=== PATIENT | male | born 1970 | race African-American/Black ===

== ENCOUNTER 2017-02-08 21:13 | Emergency (ER) | payer SELFPAY ==
[~2017-02-08] VITALS: Ht 177.8 cm; Wt 132.0 kg
[~2017-02-08 21:13] MED LIST: ALBU17I INH; PRED20 PO; ZITH500T PO
[2017-02-08 21:16] VITALS: BP 156/101; PULSE 101; RESP 16; TEMP 98; O2SAT 99
[2017-02-09 00:27] VITALS: BP 134/84; PULSE 76; RESP 18; O2SAT 97
--- NOTE | 2017-02-09 01:25 | PD ---
HPI Chief Complaint: Headache Time Seen by Provider: 00:23 Travel History International Travel<30 days: No Contact w/Intl Traveler<30days: No Traveled to known affect area: No History of Present Illness HPI The patient is a 46 year old male who presents to the [facility] emergency department with a history of intermittent headaches that he reports have become more frequent over the last month. The patient reports that he has had more home stressors, however he is also concerned that it may be related to untreated sleep apnea. He reports that he ago he was diagnosed with sleep apnea , however his insurance would not K for at the mask, therefore he has not gotten one. He reports that he is also had difficulty sleeping related to his arriving work schedule and reflux symptoms. He reports that over the last month his reflux has actually improved since starting on omeprazole over-the- counter and ingesting aloe. The patient reports that the headache moves about his head. He reports that in the day while standing it seems to center behind the right eye. He reports that during the evening when he is lying down it will center on whatever part of his head is on the bed. He reports that he also has tension in his neck. He denies having any nausea or vomiting. He denies having any light sensitivity. He denies having any cough, congestion, rhinorrhea, fever or chills. Her primary care physician currently. He reports that he is borderline hypertensive and does not take any medication for this. Otherwise on review of systems, the patient denies any neck pain currently, chest pain, shortness of breath, abdominal pain, diarrhea, urinary symptoms, or neurologic symptoms. [facility] Past Medical History Narrative Medical The patient's past medical history is significant for sleep apnea, acid reflux, borderline hypertension. Hypertension: Yes Sleep Apnea: Yes Tetanus Vaccination: < 5 Years Influenza Vaccination: No Past Surgical History Narrative Surgical The patient's past surgical history is significant for left arm ORIF. Neurologic Surgery: Yes Social History Alcohol Use: No Tobacco Use: No Substance Use: No Allergies-Medications (Allergen,Severity, Reaction): Coded Allergies: No Known Allergies (Unverified , 01/13/13) Reported Meds & Prescriptions Reported Meds & Active Scripts Active Deltasone (Prednisone) 20 Mg Tab 20 Mg PO BID Zithromax (Azithromycin) 500 Mg Tab 1 Tab PO DAILY Proventil Mdi (Albuterol Sulfate) 17 Gm Aero 2 Puff INH Q4HPRN Reported Deltasone 20 Mg Tab (Prednisone) 20 Mg Tab 20 Mg PO BID Zithromax (Azithromycin) 500 Mg Tab 500 Mg PO DAILY Proventil Mdi (Albuterol Sulfate) 17 Gm Aero 2 Puff INH Q4HPRN Review of Systems Except as stated in HPI: all other systems reviewed are Neg General / Constitutional: No: Fever Eyes: No: Visual changes HENT: Positive: Headaches, Neck Stiffness, No: Neck Pain Cardiovascular: No: Chest Pain or Discomfort, Dyspnea on exertion Respiratory: No: Shortness of Breath Gastrointestinal: Positive: Indigestion, No: Nausea, Vomiting, Diarrhea, Abdominal Pain, Changes in Bowel Habits, Loss of Appetite Genitourinary: No: Dysuria Musculoskeletal: No: Pain Skin: No Rash Neurologic: No: Weakness, Focal Abnormalities, Coordination Problem, Headache, Change in Mentation, Slurred Speech, Sensory Disturbance Psychiatric: No: Depression Endocrine: No: Polydipsia Hematologic/Lymphatic: No: Easy Bruising Physical Exam Narrative General: The patient is a well-developed well-nourished male in no acute distress. Head and Neck exam: Head is normocephalic atraumatic. Eyes: EOMI, pupils are equal round and reactive to light. Nose: Midline septum with pink mucous membranes Mouth: Dentition unremarkable. Moist mucus membranes. Posterior oropharynx is not erythematous. No tonsillar hypertrophy. Uvula midline. Airway patent. Neck: No palpable lymphadenopathy. No nuchal rigidity. No thyromegaly. No spinous process tenderness to palpation. No step-off or crepitus. No erythema or ecchymosis. Cardiovascular: Regular rate and rhythm without murmurs, gallops, or rubs. Lungs: Clear to auscultation bilaterally. No wheezes, rhonchi, or rales. Abdomen: Soft, without tenderness to palpation in all 4 quadrants of the abdomen. No guarding, rebound, or rigidity. No tenderness on palpation of McBurney's point. Normal bowel sounds are audible. Extremities: No clubbing, cyanosis, or edema. 2+ pulses in all 4 extremities. No calf tenderness on palpation. Back: No spinous process tenderness to palpation. No costovertebral angle tenderness to palpation. Neurologic Exam: Grossly nonfocal. Skin Exam: No rash noted. Intact skin that is warm and dry. Data Data Last Documented VS Vital Signs Date Time Temp Pulse Resp B/P (MAP) Pulse Ox O2 Delivery O2 Flow Rate FiO2 02/09/17 00:27 76 18 134/84 (101) 97 Room Air 02/08/17 21:16 98.0 Orders Orders Electrocardiogram (02/09/17 01:15) Complete Blood Count With Diff (02/09/17 01:15) Electrocardiogram (02/09/17 01:15) Comprehensive Metabolic Panel (02/09/17 01:15) Troponin I (02/09/17 01:15) Urinalysis - C+S If Indicated (02/09/17 01:15) Magnesium (Mg) (02/09/17 01:15) Thyroid Stimulating Hormone (02/09/17 01:15) Chest, Single Ap (02/09/17 01:15) Ct Brain W/O Iv Contrast(Rout) (02/09/17 01:15) Iv Access Insert/Monitor (02/09/17 01:15) Ecg Monitoring (02/09/17 01:15) Oximetry (02/09/17 01:15) Ketorolac Inj (Toradol Inj) (02/09/17 02:15) Sodium Chlorid 0.9% 500 Ml Inj (Ns 500 M (02/09/17 02:15) Prochlorperazine Inj (Compazine Inj) (02/09/17 02:15) Labs Laboratory Tests Test 02/09/17 01:55 02/09/17 03:50 02/09/17 04:00 White Blood Count 11.8 TH/MM3 Red Blood Count 5.90 MIL/MM3 Hemoglobin 15.7 GM/DL Hematocrit 47.9 % Mean Corpuscular Volume 81.3 FL Mean Corpuscular Hemoglobin 26.6 PG Mean Corpuscular Hemoglobin Concent 32.8 % Red Cell Distribution Width 14.4 % Platelet Count 222 TH/MM3 Mean Platelet Volume 8.9 FL Neutrophils (%) (Auto) 62.3 % Lymphocytes (%) (Auto) 25.3 % Monocytes (%) (Auto) 9.2 % Eosinophils (%) (Auto) 2.1 % Basophils (%) (Auto) 1.1 % Neutrophils # (Auto) 7.4 TH/MM3 Lymphocytes # (Auto) 3.0 TH/MM3 Monocytes # (Auto) 1.1 TH/MM3 Eosinophils # (Auto) 0.2 TH/MM3 Basophils # (Auto) 0.1 TH/MM3 CBC Comment DIFF FINAL Differential Comment Blood Urea Nitrogen 10 MG/DL Creatinine 0.83 MG/DL Random Glucose 87 MG/DL Total Protein 7.3 GM/DL Albumin 3.2 GM/DL Calcium Level 7.8 MG/DL Magnesium Level 2.0 MG/DL Alkaline Phosphatase 63 U/L Aspartate Amino Transf (AST/SGOT) 39 U/L Alanine Aminotransferase (ALT/SGPT) 29 U/L Total Bilirubin 0.4 MG/DL Sodium Level 139 MEQ/L Potassium Level 4.5 MEQ/L Chloride Level 104 MEQ/L Carbon Dioxide Level 25.8 MEQ/L Anion Gap 9 MEQ/L Estimat Glomerular Filtration Rate 122 ML/MIN Troponin I LESS THAN 0.02 NG/ML Thyroid Stimulating Hormone 3rd Gen 1.250 uIU/ML Urine Color LIGHT-YELLOW Urine Turbidity CLEAR Urine pH 6.0 Urine Specific [place] 1.011 Urine Protein NEG mg/dL Urine Glucose (UA) NEG mg/dL Urine Ketones NEG mg/dL Urine Occult Blood NEG Urine Nitrite NEG Urine Bilirubin NEG Urine Urobilinogen LESS THAN 2.0 MG/DL Urine Leukocyte Esterase NEG Urine WBC LESS THAN 1 /hpf Urine Mucus FEW /lpf Microscopic Urinalysis Comment CULT NOT INDICATED MDM Medical Decision Making Medical Screen Exam Complete: Yes Emergency Medical Condition: Yes Medical Record Reviewed: Yes Interpretation(s) Last Impressions Head CT 02/09/17114 Signed Impressions: Service Date/Time: Thursday, February 09, 2017 02:01 - CONCLUSION: No acute intracranial abnormality is identified. Darinel Cruz MD Chest X-Ray 02/09/17114 Signed Impressions: Service Date/Time: Thursday, February 09, 2017 01:32 - CONCLUSION: No acute cardiopulmonary abnormality is identified. Darinel Cruz MD Differential Diagnosis Tension headache, versus migraine headache, versus sinus headache, versus daytime headaches related to sleep apnea, versus headaches related to insomnia, versus viral syndrome, versus intracranial abnormality Narrative Course During the course of the patients emergency department visit, the patients history, examination, and differential diagnosis were reviewed with the patient. The patient had IV access obtained and blood work sent for analysis. The patient was placed on a cardiac technologist with oximetry and blood pressure monitoring. The patient had an ECG done. The patient's ECG shows a sinus rhythm heart rate of 69, no acute ST segment elevation. T waves are inverted in V1, QRS duration is 96 ms, QTC 443 ms. The patient was initially provided Toradol 15 mg IV, Compazine 5 mg IV, normal saline a 500 mL bolus 1. The patient was reexamined after the administration of pain medication and reports that he is beginning to feel improved. The patients laboratory studies were reviewed and remarkable for a white count of 11.8, hemoglobin 15.7, platelets 222 with 9.2 monocytes, CMP is remarkable for calcium 7.8, AST 39, troponin less than 0.02, albumin 3.2, TSH 1.25, urinalysis unremarkable. Radiology studies were reviewed and remarkable for a chest x-ray that shows no acute cardiopulmonary abnormality, CT scan of the brain shows no acute intracranial abnormality. I recommended that the patient follow up with a primary care physician. The patient is given information regarding patient assistance and [facility] for assistance with follow-up. We discussed the fact that the patient's symptoms could be related to his persistent untreated sleep apnea. The patient is resting comfortably and feels better, is alert and in no distress. The patients results and examination findings were discussed with the patient. The repeat examination is unremarkable and benign. The history, exam, diagnostic testing, and current condition do not suggest any significant pathology to warrant further testing, continued ED treatment, admission, or surgical evaluation at this point. The vital signs have been stable. The patient does not have uncontrollable pain, intractable vomiting, or other significant symptoms. The patient's condition is stable and appropriate for discharge. The patient will pursue further outpatient evaluation with a primary care physician or other designated or consulting physician as indicated in the discharge instructions. The patient expressed understanding and was agreeable with this plan. Diagnosis Primary Impression: Headache Qualified Codes: R51 - Headache Additional Impression: Sleep apnea in adult Referrals: [facility] 1 day Patient Assistance Program 1 day Patient Instructions: Acute Headache (ED), General Instructions, Sleep Apnea ( GEN) Med/Other Pt SpecificInfo: No Meds Exist/No RX given Disposition: 01 DISCHARGE HOME Condition: Stable Aparna Epstein MD Feb 09, 2017 01:25
--- NOTE | 2017-02-09 01:38 | RADRPT ---
EXAM DATE/TIME: 02/09/2017 01:32 [facility] COMPARISON: No previous studies available for comparison. INDICATIONS : Short of breath. MEDICAL HISTORY : Hypertension. SURGICAL HISTORY : None. ENCOUNTER: Initial ACUITY: 1 day PAIN SCORE: 0/10 LOCATION: Bilateral chest FINDINGS: Portable AP view of the chest demonstrates a normal-sized cardiac silhouette. No effusion, consolidat ion, or pneumothorax is visualized. The bones and soft tissues demonstrate no acute abnormality. CONCLUSION: No acute cardiopulmonary abnormality is identified. Darinel Cruz MD on February 09, 2017 at 1:36 Board Certified Radiologist. This report was verified electronically.
[2017-02-09 02:11] LABS: AUTOMATED NEUTROPHIL # 7.4 TH/MM3 (1.8-7.7); BASOPHIL # 0.1 TH/MM3 (0-0.2); BASOPHIL % 1.1 % (0.0-2.0); EOSINOPHIL # 0.2 TH/MM3 (0-0.4); EOSINOPHIL % 2.1 % (0.0-4.0); HEMATOCRIT 47.9 % (39.0-51.0); HEMO FLAGS DIFF FINAL; LYMPH % 25.3 % (9.0-44.0); MEAN CELL VOLUME 81.3 FL (80.0-100.0); MEAN CORPUSCULAR HEMOGLOBIN 26.6 PG (27.0-34.0); MEAN CORPUSCULAR HGB CONC 32.8 % (32.0-36.0); MONO % 9.2 % (0.0-8.0); NEUT % 62.3 % (16.0-70.0); PLATELET COUNT 222 TH/MM3 (150-450); RED CELL DISTRIBUTION WIDTH 14.4 % (11.6-17.2); WHITE BLOOD COUNT 11.8 TH/MM3 (4.0-11.0)
[2017-02-09] MEDS ORDERED: SODIUM CHLORID 0.9% 500 ML INJ 500 ML IV ONE (02:15)
[2017-02-09] MEDS ORDERED: KETOROLAC TROMETHAMINE 30 MG/ML (IVP) VIAL IV PUSH ONE (02:15)
[2017-02-09] MEDS ORDERED: PROCHLORPERAZINE INJ 10 MG/2 ML VIAL IV PUSH ONE (02:15)
--- NOTE | 2017-02-09 02:20 | RADRPT ---
EXAM DATE/TIME: 02/09/2017 02:01 [facility] COMPARISON: No previous studies available for comparison. INDICATIONS : Cephalgia x1 month. RADIATION DOSE: 56.35 CTDIvol (mGy) MEDICAL HISTORY : Hypertension. SURGICAL HISTORY : None. ENCOUNTER: Initial ACUITY: 1 day PAIN SCALE: 5/10 LOCATION: cranial TECHNIQUE: Multiple contiguous axial images were obtained of the head. Using automated exposure control and adj ustment of the mA and/or kV according to patient size, radiation dose was kept as low as reasonably a chievable to obtain optimal diagnostic quality images. DICOM format image data is available electro nically for review and comparison. FINDINGS: CEREBRUM: The ventricles are normal. No evidence of midline shift, mass lesion, hemorrhage or acute infarction . No extra-axial fluid collections are seen. POSTERIOR FOSSA: The cerebellum and brainstem are intact. The 4th ventricle is midline. The cerebellopontine angle i s unremarkable. EXTRACRANIAL: Visualized sinuses are clear. SKULL: The calvaria is intact. No evidence of skull fracture. CONCLUSION: No acute intracranial abnormality is identified. Darinel Cruz MD on February 09, 2017 at 2:17 Board Certified Radiologist. This report was verified electronically.
[2017-02-09 04:30] LABS: ALT (GPT) 29 U/L (12-78); ANION GAP 9 MEQ/L (5-15); AST (GOT) 39 U/L (15-37); BICARBONATE 25.8 MEQ/L (21.0-32.0); BLOOD UREA NITROGEN 10 MG/DL (7-18); CHLORIDE 104 MEQ/L (98-107); GLOMERULAR FILTRATION RATE 122 ML/MIN (>89); POTASSIUM 4.5 MEQ/L (3.5-5.1); SODIUM (NA) 139 MEQ/L (136-145)
[2017-02-09 04:33] LABS: BLOOD, URINE NEG (NEG); COMMENT (UR) CULT NOT INDICATED; CULTURE IF INDICATED CULT NOT INDICATED; GLUCOSE,URINE NEG (NEG); KETONE, URINE NEG (NEG); MUCUS URINE FEW /lpf (OCC); NITRITE,URINE NEG (NEG); URINE COLOR LIGHT-YELLOW (YELLW/STRAW)
[2017-02-09 04:39] LABS: ALKALINE PHOSPHATASE 63 U/L (45-117); TOTAL BILIRUBIN ADULT 0.4 MG/DL (0.2-1.0)
--- NOTE | 2017-02-09 10:44 | EKG ---
Date Performed: 02/09/2017 Time Performed: 02:57:28 PTAGE: 46 years EKG: Normal Sinus rhythm Normal ECG NO PREVIOUS TRACING DOCTOR: Denis Epstein Interpretating Date/Time 02/09/2017 10:44:10
== END 2017-02-09 05:24 | disposition home or self-care (01) ==
LOC: NEPC 21:13
DX: R51 Headache (principal); G47.30 Sleep apnea, unspecified; I10 Essential (primary) hypertension; K21.9 Gastro-esophageal reflux disease without esophagitis; Z79.899 Other long term (current) drug therapy
CPT/HCPCS: 70450; 71010; 80053; 81001; 83735; 84443; 84484; 85025; 93005; 96361; 96374; 96375; 99285; J0780; J1885; J7040